=== PATIENT | female | born 1945 | race Caucasian/White ===

== ENCOUNTER 2021-01-02 15:03 | Inpatient (IN) ==
[2021-01-02] MEDS ORDERED: FUROSEMIDE 40 MG/4 ML VIAL IV STA (15:25)
[2021-01-02 15:50] LABS: ABG Base Excess 6.2 MMOL/L (-2.5-2.5); ABG Oxygen Saturation 98.1 % (95-100); ABG PCO2 44.3 MM HG (35-48); ABG PH 7.454 (7.35-7.45); ABG TCO2 26.2 MMOL/L (23-27)
[2021-01-02 16:59] LABS: Basophils # 0.1 10*3/uL (0.0-0.2); Basophils % 0.6 % (0.0-0.8); Eosinophils # 0.5 10*3/uL (0.0-0.87); Eosinophils % 5.3 % (0.00-10.9); Hematocrit 46.4 VOL% (35.7-47.0); Hemoglobin 15.4 GM/DL (12.0-16.0); Immature Granulocytes % 0.5 %; Immature Granulocytes Absolute 0.05 #; Lymphocytes % 20.8 % (21.3-54.2); Mean Corpuscular HGB Conc 33.2 GM/DL (32-36); Mean Corpuscular Volume 95.3 FL (87-102); Mean Platelet Volume 9.4 FL (9.6-12.0); Monocytes % 13.3 % (1.7-12.7); Neutrophils % 59.5 % (38.7-73.9); Platelet Count 191 T/CUMM (130-400); Red Blood Count 4.87 MC/CUMM (3.8-5.5); Red Cell Distribution Width 15.5 % (9.3-17.3); White Blood Count 9.6 T/CUMM (4-12)
[2021-01-02 17:12] LABS: Albumin 2.2 G/DL (3.4-5.0); Bilirubin,Total 2.1 MG/DL (0.20-1.00); Calcium 8.8 MG/DL (8.5-10.1); Osmolality,Calculated 274.4 MOS/KG (273-304); Total Protein 7.4 G/DL (6.4-8.2)
[2021-01-02 17:20] LABS: INR 1.2; PT Patient Result 13.3 SECS (10.5-12.0); Partial Thromboplastin Time 27.7 SECS (23.9-33.8)
[2021-01-02 18:28] LABS: Bilirubin,Urine Negative (Negative); Blood, Urine Moderate mg/dL (Negative); Glucose,Urine (UA) Negative (Negative); Ketones,Urine Negative (Negative); Mucus,Urine Occasional /LPF (Occasional); Nitrite,Urine Negative (Negative); Protein,Urine Negative; RBC,Urine 5 /HPF (0-4); Squamous Epithelial Cell,Urine Many /HPF (0-10); Urine Appearance CLOUDY (Clear); Urine Color Yellow (Yellow); Urine Urobilinogen < 2.0 EU/DL (0.2-1.0)
[2021-01-02 18:44] LABS: Barbiturates Screen,Urine Negative (Negative); Benzodiazepines Screen,Urine Negative (Negative); Cannabinoid Screen,Urine Negative (Negative); Opiate Screen,Urine Negative (Negative); Phencyclidine Screen,Urine Negative (Negative)
[2021-01-02] MEDS ORDERED: cefTRIAXone 1,000 MG in SODIUM CHLORIDE 0.9% 100 ML IV STA (19:13)
[2021-01-02] MEDS ORDERED: CALCIUM CARBONATE CHEW 500 MG TABLET PO PRN (20:00)
[2021-01-02] MEDS ORDERED: ALBUTEROL/IPRATROPIUM 3 ML NEB RESP TX PRN (20:00)
[2021-01-02] MEDS ORDERED: GLUCAGON 1 MG VIAL IM PRN (20:00)
[2021-01-02] MEDS ORDERED: ONDANSETRON 4 MG/2 ML VIAL IV PRN (20:00)
[2021-01-02] MEDS ORDERED: ACETAMINOPHEN 325 MG TABLET PO PRN (20:00)
[2021-01-02] MEDS ORDERED: DEXTROSE 50% 25 GM/50 ML VIAL IV PRN (20:00)
[2021-01-02] MEDS: INSULIN REGULAR 100 UNIT/ML SUBCUT SCH (22:36)
[2021-01-02] MEDS: ENOXAPARIN 40 MG/0.4 ML SYRINGE SUBCUT SCH (22:53)
[2021-01-02] MEDS: LACTULOSE 20 GM/30 ML UDCUP PO SCH (22:53)
[2021-01-03 06:15] LABS: Basophils # 0.1 10*3/uL (0.0-0.2); Basophils % 0.7 % (0.0-0.8); Eosinophils # 0.5 10*3/uL (0.0-0.87); Eosinophils % 5.3 % (0.00-10.9); Hematocrit 43.8 VOL% (35.7-47.0); Hemoglobin 14.3 GM/DL (12.0-16.0); Immature Granulocytes % 0.4 %; Immature Granulocytes Absolute 0.04 #; Lymphocytes # 2.6 10*3/uL (1.4-4.0); Lymphocytes % 28.3 % (21.3-54.2); Mean Corpuscular HGB Conc 32.6 GM/DL (32-36); Mean Corpuscular Volume 96.7 FL (87-102); Mean Platelet Volume 9.5 FL (9.6-12.0); Neutrophils % 53.3 % (38.7-73.9); Platelet Count 167 T/CUMM (130-400); Red Blood Count 4.53 MC/CUMM (3.8-5.5); Red Cell Distribution Width 15.3 % (9.3-17.3); White Blood Count 9.1 T/CUMM (4-12)
[2021-01-03 06:32] LABS: Calcium 8.6 MG/DL (8.5-10.1); Osmolality,Calculated 273.2 MOS/KG (273-304); Potassium 3.7 MMOL/L (3.5-5.1)
[2021-01-03] MEDS: LEVOTHYROXINE 25 MCG TABLET PO SCH (06:51)
[2021-01-03] MEDS: FUROSEMIDE 40 MG/4 ML VIAL IV SCH ×2 (08:28→16:14)
[2021-01-03] MEDS: INSULIN REGULAR 100 UNIT/ML SUBCUT SCH ×4 (10:14→20:47)
[2021-01-03] MEDS: SPIRONOLACTONE 50 MG TABLET PO SCH (10:15)
[2021-01-03] MEDS: LACTULOSE 20 GM/30 ML UDCUP PO SCH ×3 (10:15→20:47)
[2021-01-03] MEDS ORDERED: SKIN HEALING OINT (AQUAPHOR) 50 GM TUBE TOP PRN (13:34)
[2021-01-03 15:10] LABS: Glucose,Pleural Fluid 114 MG/DL; LDH,Body Fluid 89 U/L; Total Protein,Body Fluid < 2.0 G/DL
[2021-01-03 15:29] LABS: Lymphocytes,Pleural Fluid 86 %; Monocytes,Pleural Fluid 8 %; Neutrophils,Pleural Fluid 6 %
[2021-01-03 15:47] LABS: RBC,Pleural Fluid 22943 T/CUMM
[2021-01-03] MEDS: ENOXAPARIN 40 MG/0.4 ML SYRINGE SUBCUT SCH (20:47)
[2021-01-04] MEDS: LEVOTHYROXINE 25 MCG TABLET PO SCH (06:28)
[2021-01-04] MEDS: HydrOXYzine PAMOATE 25 MG CAPSULE PO PRN ×2 (06:28→22:00)
[2021-01-04] MEDS: INSULIN REGULAR 100 UNIT/ML SUBCUT SCH ×4 (07:53→22:01)
[2021-01-04] MEDS: LACTULOSE 20 GM/30 ML UDCUP PO SCH ×3 (09:46→22:00)
[2021-01-04] MEDS: SPIRONOLACTONE 50 MG TABLET PO SCH (09:46)
[2021-01-04] MEDS: FUROSEMIDE 40 MG/4 ML VIAL IV SCH ×2 (09:46→15:23)
[2021-01-04] MEDS: ENOXAPARIN 40 MG/0.4 ML SYRINGE SUBCUT SCH (22:00)
[2021-01-05 06:12] LABS: Calcium 8.1 MG/DL (8.5-10.1); Osmolality,Calculated 278.8 MOS/KG (273-304); Potassium 3.4 MMOL/L (3.5-5.1)
[2021-01-05] MEDS: LEVOTHYROXINE 25 MCG TABLET PO SCH (06:22)
[2021-01-05] MEDS: INSULIN REGULAR 100 UNIT/ML SUBCUT SCH ×4 (07:47→20:25)
[2021-01-05] MEDS: SPIRONOLACTONE 50 MG TABLET PO SCH (09:02)
[2021-01-05] MEDS: LACTULOSE 20 GM/30 ML UDCUP PO SCH ×3 (09:02→21:10)
[2021-01-05] MEDS: FUROSEMIDE 40 MG/4 ML VIAL IV SCH ×2 (09:02→15:29)
[2021-01-05] MEDS ORDERED: POTASSIUM CHLORIDE 20 MEQ TABLET PO ONE (09:28)
[2021-01-05] MEDS ORDERED: LORazepam 0.5 MG TABLET PO PRN (09:57)
[2021-01-05] MEDS ORDERED: HYDROCORTISONE 25 MG SUPP RECTAL PRN (14:58)
[2021-01-05] MEDS: NYSTATIN POWDER 15 GM BOTTLE TOP SCH ×2 (16:49→21:10)
[2021-01-05] MEDS: ENOXAPARIN 40 MG/0.4 ML SYRINGE SUBCUT SCH (21:09)
[2021-01-05] MEDS: ZALEPLON 5 MG CAPSULE PO PRN (21:09)
[2021-01-06] MEDS: LEVOTHYROXINE 25 MCG TABLET PO SCH (06:25)
[2021-01-06 06:50] LABS: Osmolality,Calculated 273.1 MOS/KG (273-304); Potassium 3.5 MMOL/L (3.5-5.1)
[2021-01-06 08:53] LABS: Basophils # 0.1 10*3/uL (0.0-0.2); Basophils % 0.7 % (0.0-0.8); Eosinophils # 0.8 10*3/uL (0.0-0.87); Hematocrit 42.8 VOL% (35.7-47.0); Immature Granulocytes % 0.3 %; Immature Granulocytes Absolute 0.03 #; Lymphocytes # 2.4 10*3/uL (1.4-4.0); Lymphocytes % 28.4 % (21.3-54.2); Mean Corpuscular HGB Conc 32.7 GM/DL (32-36); Mean Corpuscular Volume 94.5 FL (87-102); Mean Platelet Volume 9.6 FL (9.6-12.0); Monocytes % 13.5 % (1.7-12.7); Neutrophils % 48.1 % (38.7-73.9); Platelet Count 143 T/CUMM (130-400); Red Blood Count 4.53 MC/CUMM (3.8-5.5); Red Cell Distribution Width 15.6 % (9.3-17.3); White Blood Count 8.6 T/CUMM (4-12)
[2021-01-06] MEDS: NYSTATIN POWDER 15 GM BOTTLE TOP SCH ×2 (09:00→21:19)
[2021-01-06] MEDS: LACTULOSE 20 GM/30 ML UDCUP PO SCH ×3 (09:59→21:19)
[2021-01-06] MEDS: FUROSEMIDE 40 MG/4 ML VIAL IV SCH ×2 (09:59→15:37)
[2021-01-06] MEDS: SPIRONOLACTONE 50 MG TABLET PO SCH (10:00)
[2021-01-06] MEDS: INSULIN REGULAR 100 UNIT/ML SUBCUT SCH ×4 (12:01→21:19)
[2021-01-06] MEDS: ENOXAPARIN 40 MG/0.4 ML SYRINGE SUBCUT SCH (21:19)
[2021-01-06] MEDS: HydrOXYzine PAMOATE 25 MG CAPSULE PO PRN (21:24)
[2021-01-06] MEDS: ZALEPLON 5 MG CAPSULE PO PRN (21:24)
[2021-01-07] MEDS: LEVOTHYROXINE 25 MCG TABLET PO SCH (06:04)
[2021-01-07 06:28] LABS: Basophils # 0.1 10*3/uL (0.0-0.2); Basophils % 0.5 % (0.0-0.8); Eosinophils # 0.7 10*3/uL (0.0-0.87); Hematocrit 43.6 VOL% (35.7-47.0); Hemoglobin 14.7 GM/DL (12.0-16.0); Immature Granulocytes % 0.4 %; Immature Granulocytes Absolute 0.04 #; Lymphocytes # 2.4 10*3/uL (1.4-4.0); Lymphocytes % 26.3 % (21.3-54.2); Mean Corpuscular HGB Conc 33.7 GM/DL (32-36); Mean Corpuscular Volume 94.4 FL (87-102); Mean Platelet Volume 9.8 FL (9.6-12.0); Monocytes % 13.3 % (1.7-12.7); Neutrophils % 51.5 % (38.7-73.9); Platelet Count 144 T/CUMM (130-400); Red Blood Count 4.62 MC/CUMM (3.8-5.5); Red Cell Distribution Width 15.5 % (9.3-17.3); White Blood Count 9.1 T/CUMM (4-12)
[2021-01-07 06:47] LABS: Calcium 8.3 MG/DL (8.5-10.1); Osmolality,Calculated 270.4 MOS/KG (273-304); Potassium 3.8 MMOL/L (3.5-5.1)
[2021-01-07] MEDS: NYSTATIN POWDER 15 GM BOTTLE TOP SCH ×2 (09:00→21:19)
[2021-01-07] MEDS: LACTULOSE 20 GM/30 ML UDCUP PO SCH ×3 (09:37→21:18)
[2021-01-07] MEDS: SPIRONOLACTONE 50 MG TABLET PO SCH (09:37)
[2021-01-07] MEDS: FUROSEMIDE 40 MG/4 ML VIAL IV SCH ×2 (09:39→15:25)
[2021-01-07] MEDS: INSULIN REGULAR 100 UNIT/ML SUBCUT SCH ×4 (09:59→21:19)
[2021-01-07] MEDS: ENOXAPARIN 40 MG/0.4 ML SYRINGE SUBCUT SCH (21:19)
[2021-01-07] MEDS: ZALEPLON 5 MG CAPSULE PO PRN (21:22)
[2021-01-07] MEDS: HydrOXYzine PAMOATE 25 MG CAPSULE PO PRN (21:22)
[2021-01-08 06:17] LABS: Basophils # 0.1 10*3/uL (0.0-0.2); Basophils % 0.5 % (0.0-0.8); Eosinophils % 9.1 % (0.00-10.9); Hematocrit 43.3 VOL% (35.7-47.0); Hemoglobin 14.3 GM/DL (12.0-16.0); Immature Granulocytes % 0.6 %; Immature Granulocytes Absolute 0.07 #; Lymphocytes # 3.1 10*3/uL (1.4-4.0); Lymphocytes % 28.2 % (21.3-54.2); Mean Corpuscular Volume 96.4 FL (87-102); Mean Platelet Volume 9.6 FL (9.6-12.0); Monocytes % 13.8 % (1.7-12.7); Neutrophils % 47.8 % (38.7-73.9); Platelet Count 151 T/CUMM (130-400); Red Blood Count 4.49 MC/CUMM (3.8-5.5); Red Cell Distribution Width 15.6 % (9.3-17.3); White Blood Count 10.9 T/CUMM (4-12)
[2021-01-08] MEDS: LEVOTHYROXINE 25 MCG TABLET PO SCH (06:46)
[2021-01-08 06:49] LABS: Calcium 8.5 MG/DL (8.5-10.1); Osmolality,Calculated 267.7 MOS/KG (273-304); Potassium 4.5 MMOL/L (3.5-5.1)
[2021-01-08] MEDS ORDERED: LORazepam 1 MG TABLET PO ONE (08:00)
[2021-01-08] MEDS: FUROSEMIDE 40 MG/4 ML VIAL IV SCH (08:31)
[2021-01-08] MEDS: INSULIN REGULAR 100 UNIT/ML SUBCUT SCH ×2 (08:31→11:57)
[2021-01-08] MEDS: SPIRONOLACTONE 50 MG TABLET PO SCH (08:46)
[2021-01-08] MEDS: LACTULOSE 20 GM/30 ML UDCUP PO SCH (08:46)
[2021-01-08] MEDS: NYSTATIN POWDER 15 GM BOTTLE TOP SCH (08:48)
[2021-01-08 12:11] VITALS: BP 127/68
== END 2021-01-08 13:57 | DRG 433 ==
LOC: EDUNIT# → EDBD → N.ED 15:03 → SUATTDRO 20:00 → N.EDINP 20:00 → N.3E 21:53
PROVIDERS: ADMIT Internal Medicine Geriatric Medicine; ATTEND Internal Medicine
PROC: IRTHORA (2021-01-03 12:45)

== ENCOUNTER 2021-01-14 09:27 | Inpatient (IN) ==
[2021-01-14 10:11] LABS: Basophils # 0.1 10*3/uL (0.0-0.2); Basophils % 0.6 % (0.0-0.8); Eosinophils # 0.5 10*3/uL (0.0-0.87); Eosinophils % 6.4 % (0.00-10.9); Hematocrit 42.8 VOL% (35.7-47.0); Immature Granulocytes % 0.3 %; Immature Granulocytes Absolute 0.02 #; Lymphocytes # 2.3 10*3/uL (1.4-4.0); Lymphocytes % 28.4 % (21.3-54.2); Mean Corpuscular HGB Conc 32.7 GM/DL (32-36); Mean Corpuscular Volume 95.5 FL (87-102); Mean Platelet Volume 9.2 FL (9.6-12.0); Monocytes % 10.8 % (1.7-12.7); Neutrophils % 53.5 % (38.7-73.9); Platelet Count 182 T/CUMM (130-400); Red Blood Count 4.48 MC/CUMM (3.8-5.5); Red Cell Distribution Width 16.3 % (9.3-17.3); White Blood Count 7.9 T/CUMM (4-12)
[2021-01-14 10:47] LABS: Albumin 2.5 G/DL (3.4-5.0); Osmolality,Calculated 276.2 MOS/KG (273-304); Potassium 4.8 MMOL/L (3.5-5.1); Total Protein 7.3 G/DL (6.4-8.2)
[2021-01-14 11:05] LABS: Bilirubin,Urine Negative (Negative); Blood, Urine Small mg/dL (Negative); Glucose,Urine (UA) Negative (Negative); Ketones,Urine Negative (Negative); Mucus,Urine Occasional /LPF (Occasional); Nitrite,Urine Negative (Negative); Protein,Urine Negative; RBC,Urine 1 /HPF (0-4); Squamous Epithelial Cell,Urine Occasional /HPF (0-10); Urine Appearance CLEAR (Clear); Urine Color Yellow (Yellow); Urine Specific Gravity 1.012 (1.001-1.035); Urine Urobilinogen < 2.0 EU/DL (0.2-1.0)
[2021-01-14] MEDS ORDERED: hydrALAZINE 20 MG/1 ML VIAL IV PRN (12:28)
[2021-01-14] MEDS ORDERED: DEXTROSE 50% 25 GM/50 ML VIAL IV PRN (12:28)
[2021-01-14] MEDS ORDERED: MORPHINE 2 MG/1 ML SYRINGE IV PRN (12:28)
[2021-01-14] MEDS ORDERED: GLUCAGON 1 MG VIAL IM PRN (12:28)
[2021-01-14] MEDS ORDERED: ONDANSETRON 4 MG/2 ML VIAL IV PRN (12:28)
[2021-01-14] MEDS ORDERED: DOCUSATE SODIUM 100 MG CAPSULE PO PRN (12:28)
[2021-01-14] MEDS: NYSTATIN POWDER 15 GM BOTTLE TOP SCH ×3 (13:42→21:37)
[2021-01-14 16:09] LABS: INR 1.2; PT Patient Result 13.1 SECS (10.5-12.0)
[2021-01-14] MEDS: INSULIN LISPRO 100 UNIT/ML SUBCUT SCH ×2 (17:04→21:16)
[2021-01-15 05:01] LABS: Basophils # 0.1 10*3/uL (0.0-0.2); Basophils % 0.7 % (0.0-0.8); Eosinophils # 0.7 10*3/uL (0.0-0.87); Eosinophils % 7.8 % (0.00-10.9); Hematocrit 41.4 VOL% (35.7-47.0); Hemoglobin 13.9 GM/DL (12.0-16.0); Immature Granulocytes % 0.3 %; Immature Granulocytes Absolute 0.03 #; Lymphocytes # 2.8 10*3/uL (1.4-4.0); Lymphocytes % 31.3 % (21.3-54.2); Mean Corpuscular HGB Conc 33.6 GM/DL (32-36); Mean Corpuscular Volume 95.4 FL (87-102); Mean Platelet Volume 9.3 FL (9.6-12.0); Neutrophils % 46.9 % (38.7-73.9); Platelet Count 185 T/CUMM (130-400); Red Blood Count 4.34 MC/CUMM (3.8-5.5); Red Cell Distribution Width 16.2 % (9.3-17.3)
[2021-01-15 05:20] LABS: Calcium 8.9 MG/DL (8.5-10.1); Osmolality,Calculated 274.2 MOS/KG (273-304)
[2021-01-15 05:27] LABS: INR 1.2; PT Patient Result 12.7 SECS (10.5-12.0)
[2021-01-15] MEDS ORDERED: IBUPROFEN 400 MG TABLET PO PRN (10:20)
[2021-01-15 11:04] LABS: Lymphocytes,Pleural Fluid 79 %; Monocytes,Pleural Fluid 7 %; Neutrophils,Pleural Fluid 14 %
[2021-01-15 11:10] LABS: RBC,Pleural Fluid 29313 T/CUMM
[2021-01-15] MEDS: PANTOPRAZOLE 40 MG TABLET PO SCH (12:37)
[2021-01-15] MEDS: LACTULOSE 20 GM/30 ML UDCUP PO SCH ×3 (12:37→20:20)
[2021-01-15] MEDS: INSULIN LISPRO 100 UNIT/ML SUBCUT SCH ×4 (12:37→20:19)
[2021-01-15] MEDS: amLODIPine 10 MG TABLET PO SCH (12:37)
[2021-01-15] MEDS: NYSTATIN POWDER 15 GM BOTTLE TOP SCH ×4 (12:38→20:20)
[2021-01-15 13:12] LABS: Amylase,Body Fluid 42 U/L; Glucose,Pleural Fluid 96 MG/DL; LDH,Body Fluid 96 U/L; Total Protein,Body Fluid < 2.0 G/DL; Triglycerides,Body Fluid 42 MG/DL
[2021-01-15] MEDS: HydrOXYzine PAMOATE 25 MG CAPSULE PO SCH (20:20)
[2021-01-16 05:18] LABS: Basophils # 0.1 10*3/uL (0.0-0.2); Basophils % 0.6 % (0.0-0.8); Eosinophils # 0.6 10*3/uL (0.0-0.87); Eosinophils % 6.4 % (0.00-10.9); Hematocrit 43.3 VOL% (35.7-47.0); Hemoglobin 14.5 GM/DL (12.0-16.0); Immature Granulocytes % 0.3 %; Immature Granulocytes Absolute 0.03 #; Lymphocytes # 2.7 10*3/uL (1.4-4.0); Lymphocytes % 29.7 % (21.3-54.2); Mean Corpuscular HGB Conc 33.5 GM/DL (32-36); Mean Corpuscular Volume 95.4 FL (87-102); Mean Platelet Volume 9.2 FL (9.6-12.0); Monocytes % 12.5 % (1.7-12.7); Neutrophils % 50.5 % (38.7-73.9); Platelet Count 160 T/CUMM (130-400); Red Blood Count 4.54 MC/CUMM (3.8-5.5); Red Cell Distribution Width 16.2 % (9.3-17.3); White Blood Count 9.1 T/CUMM (4-12)
[2021-01-16 05:49] LABS: Albumin 2.2 G/DL (3.4-5.0); Bilirubin,Total 2.4 MG/DL (0.20-1.00); Calcium 8.9 MG/DL (8.5-10.1); Osmolality,Calculated 277.1 MOS/KG (273-304); Potassium 4.6 MMOL/L (3.5-5.1); Total Protein 7.2 G/DL (6.4-8.2)
[2021-01-16] MEDS: LEVOTHYROXINE 25 MCG TABLET PO SCH (06:20)
[2021-01-16] MEDS: NYSTATIN POWDER 15 GM BOTTLE TOP SCH ×4 (08:41→20:28)
[2021-01-16] MEDS: INSULIN LISPRO 100 UNIT/ML SUBCUT SCH ×4 (08:41→20:27)
[2021-01-16] MEDS: amLODIPine 10 MG TABLET PO SCH (08:42)
[2021-01-16] MEDS: PANTOPRAZOLE 40 MG TABLET PO SCH (08:42)
[2021-01-16] MEDS: LACTULOSE 20 GM/30 ML UDCUP PO SCH ×3 (08:42→20:28)
[2021-01-16] MEDS: HEPARIN 5,000 UNIT/1 ML VIAL SUBCUT SCH (15:27)
[2021-01-16] MEDS: HydrOXYzine PAMOATE 25 MG CAPSULE PO SCH (20:28)
[2021-01-17] MEDS: SKIN HEALING OINT (AQUAPHOR) 50 GM TUBE TOP PRN ×2 (01:44→11:18)
[2021-01-17] MEDS: HEPARIN 5,000 UNIT/1 ML VIAL SUBCUT SCH ×2 (02:17→15:11)
[2021-01-17 05:13] LABS: Basophils # 0.1 10*3/uL (0.0-0.2); Basophils % 0.6 % (0.0-0.8); Eosinophils # 0.9 10*3/uL (0.0-0.87); Eosinophils % 9.4 % (0.00-10.9); Hematocrit 43.3 VOL% (35.7-47.0); Hemoglobin 14.3 GM/DL (12.0-16.0); Immature Granulocytes % 0.3 %; Immature Granulocytes Absolute 0.03 #; Lymphocytes # 2.9 10*3/uL (1.4-4.0); Lymphocytes % 29.7 % (21.3-54.2); Mean Corpuscular Volume 95.6 FL (87-102); Mean Platelet Volume 9.3 FL (9.6-12.0); Monocytes % 13.1 % (1.7-12.7); Neutrophils % 46.9 % (38.7-73.9); Platelet Count 170 T/CUMM (130-400); Red Blood Count 4.53 MC/CUMM (3.8-5.5); Red Cell Distribution Width 15.9 % (9.3-17.3); White Blood Count 9.8 T/CUMM (4-12)
[2021-01-17 05:33] LABS: Albumin 2.1 G/DL (3.4-5.0); Calcium 8.7 MG/DL (8.5-10.1); Osmolality,Calculated 274.4 MOS/KG (273-304); Potassium 4.5 MMOL/L (3.5-5.1); Total Protein 7.3 G/DL (6.4-8.2)
[2021-01-17 05:46] LABS: Anisocytosis 1+; Platelet Estimate Normal
[2021-01-17 05:47] LABS: Macrocytosis Slight
[2021-01-17] MEDS: LEVOTHYROXINE 25 MCG TABLET PO SCH (06:28)
[2021-01-17] MEDS: INSULIN LISPRO 100 UNIT/ML SUBCUT SCH ×4 (09:14→21:35)
[2021-01-17 09:42] LABS: ABG Base Excess 5.5 MMOL/L (-2.5-2.5); ABG HCO3 28.3 MMOL/L (20-26); ABG PCO2 35.5 MM HG (35-48); ABG PH 7.519 (7.35-7.45); ABG PO2 73.5 MM HG (80-95); ABG TCO2 29.4 MMOL/L (23-27); Allen Test Positive
[2021-01-17] MEDS: NYSTATIN POWDER 15 GM BOTTLE TOP SCH ×4 (11:18→21:35)
[2021-01-17] MEDS: LACTULOSE 20 GM/30 ML UDCUP PO SCH ×3 (11:24→21:35)
[2021-01-17] MEDS: amLODIPine 10 MG TABLET PO SCH (11:58)
[2021-01-17] MEDS: PANTOPRAZOLE 40 MG TABLET PO SCH (11:59)
[2021-01-17] MEDS: RIFAXIMIN 550 MG TABLET PO SCH ×2 (16:14→21:35)
[2021-01-17] MEDS: METOPROLOL TARTRATE 25 MG TABLET PO SCH ×2 (16:14→21:35)
[2021-01-18] MEDS: HEPARIN 5,000 UNIT/1 ML VIAL SUBCUT SCH ×2 (02:17→13:56)
[2021-01-18 04:54] LABS: Basophils % 0.5 % (0.0-0.8); Eosinophils # 0.7 10*3/uL (0.0-0.87); Eosinophils % 8.3 % (0.00-10.9); Hematocrit 46.3 VOL% (35.7-47.0); Hemoglobin 15.2 GM/DL (12.0-16.0); Immature Granulocytes % 0.3 %; Immature Granulocytes Absolute 0.03 #; Lymphocytes # 2.4 10*3/uL (1.4-4.0); Lymphocytes % 26.7 % (21.3-54.2); Mean Corpuscular HGB Conc 32.8 GM/DL (32-36); Mean Corpuscular Volume 96.3 FL (87-102); Monocytes % 10.7 % (1.7-12.7); Neutrophils % 53.5 % (38.7-73.9); Platelet Count 159 T/CUMM (130-400); Red Blood Count 4.81 MC/CUMM (3.8-5.5); Red Cell Distribution Width 15.9 % (9.3-17.3); White Blood Count 8.8 T/CUMM (4-12)
[2021-01-18 05:25] LABS: Albumin 2.1 G/DL (3.4-5.0); Bilirubin,Total 1.8 MG/DL (0.20-1.00); Calcium 8.8 MG/DL (8.5-10.1); Potassium 4.4 MMOL/L (3.5-5.1); Total Protein 7.3 G/DL (6.4-8.2)
[2021-01-18] MEDS: LEVOTHYROXINE 25 MCG TABLET PO SCH (06:10)
[2021-01-18] MEDS: INSULIN LISPRO 100 UNIT/ML SUBCUT SCH ×4 (07:53→20:42)
[2021-01-18] MEDS ORDERED: PANTOPRAZOLE 40 MG VIAL IV ONE (08:41)
[2021-01-18] MEDS: NYSTATIN POWDER 15 GM BOTTLE TOP SCH ×4 (08:41→21:10)
[2021-01-18] MEDS: PANTOPRAZOLE 40 MG TABLET PO SCH (08:41)
[2021-01-18] MEDS: RIFAXIMIN 550 MG TABLET PO SCH ×2 (08:41→21:10)
[2021-01-18] MEDS: amLODIPine 10 MG TABLET PO SCH (08:41)
[2021-01-18] MEDS: METOPROLOL TARTRATE 25 MG TABLET PO SCH ×2 (08:41→21:10)
[2021-01-18] MEDS: LACTULOSE 20 GM/30 ML UDCUP PO SCH ×3 (08:41→21:10)
[2021-01-18] MEDS ORDERED: LEVOFLOXACIN INJ 500 MG/100 ML PREMIX IV ONE (13:45)
[2021-01-18] MEDS: SKIN HEALING OINT (AQUAPHOR) 50 GM TUBE TOP PRN ×2 (14:01→21:10)
[2021-01-18 17:45] LABS: Bilirubin,Urine Negative (Negative); Blood, Urine Negative (Negative); Glucose,Urine (UA) Negative (Negative); Hyaline Casts,Urine 14 /LPF (0-3); Ketones,Urine Negative (Negative); Mucus,Urine Occasional /LPF (Occasional); Nitrite,Urine Negative (Negative); Protein,Urine Negative; RBC,Urine 3 /HPF (0-4); Squamous Epithelial Cell,Urine Occasional /HPF (0-10); Urine Appearance CLEAR (Clear); Urine Color Yellow (Yellow); Urine Specific Gravity 1.016 (1.001-1.035)
[2021-01-19] MEDS: HEPARIN 5,000 UNIT/1 ML VIAL SUBCUT SCH ×2 (02:15→14:23)
[2021-01-19 06:10] LABS: Basophils % 0.5 % (0.0-0.8); Eosinophils # 0.8 10*3/uL (0.0-0.87); Eosinophils % 10.3 % (0.00-10.9); Hemoglobin 14.4 GM/DL (12.0-16.0); Immature Granulocytes % 0.2 %; Immature Granulocytes Absolute 0.02 #; Lymphocytes % 24.8 % (21.3-54.2); Mean Corpuscular Volume 96.8 FL (87-102); Mean Platelet Volume 9.5 FL (9.6-12.0); Monocytes % 12.7 % (1.7-12.7); Neutrophils % 51.5 % (38.7-73.9); Platelet Count 157 T/CUMM (130-400); Red Blood Count 4.65 MC/CUMM (3.8-5.5); Red Cell Distribution Width 15.9 % (9.3-17.3); White Blood Count 8.1 T/CUMM (4-12)
[2021-01-19] MEDS: LEVOTHYROXINE 25 MCG TABLET PO SCH (06:26)
[2021-01-19 06:35] LABS: Albumin 1.9 G/DL (3.4-5.0); Bilirubin,Total 1.7 MG/DL (0.20-1.00); Calcium 8.6 MG/DL (8.5-10.1); Potassium 4.6 MMOL/L (3.5-5.1); Total Protein 6.8 G/DL (6.4-8.2)
[2021-01-19] MEDS: INSULIN LISPRO 100 UNIT/ML SUBCUT SCH ×4 (07:51→21:07)
[2021-01-19] MEDS ORDERED: DEXT 5% NACL 0.45% KCL 20 MEQ 20 MEQ/1,000 ML BAG IV SCH (09:00)
[2021-01-19] MEDS: amLODIPine 10 MG TABLET PO SCH (10:56)
[2021-01-19] MEDS: METOPROLOL TARTRATE 25 MG TABLET PO SCH ×2 (10:56→21:08)
[2021-01-19] MEDS: RIFAXIMIN 550 MG TABLET PO SCH ×2 (10:56→21:08)
[2021-01-19] MEDS: LACTULOSE 20 GM/30 ML UDCUP PO SCH ×2 (10:56→21:07)
[2021-01-19] MEDS: metroNIDAZOLE INJ 500 MG/100 ML PREMIX IV SCH ×2 (10:56→17:24)
[2021-01-19] MEDS: PANTOPRAZOLE 40 MG TABLET PO SCH (10:56)
[2021-01-19] MEDS: NYSTATIN POWDER 15 GM BOTTLE TOP SCH ×4 (10:57→21:08)
[2021-01-19] MEDS: ALBUTEROL/IPRATROPIUM 3 ML NEB RESP TX SCH ×2 (13:44→20:09)
[2021-01-19] MEDS: LEVOFLOXACIN INJ 250 MG/50 ML PREMIX IV SCH (14:23)
[2021-01-20] MEDS: metroNIDAZOLE INJ 500 MG/100 ML PREMIX IV SCH ×4 (00:46→16:06)
[2021-01-20] MEDS: ALBUTEROL/IPRATROPIUM 3 ML NEB RESP TX SCH ×4 (02:43→20:00)
[2021-01-20] MEDS: HEPARIN 5,000 UNIT/1 ML VIAL SUBCUT SCH ×2 (02:48→13:33)
[2021-01-20 04:15] LABS: Basophils % 0.5 % (0.0-0.8); Eosinophils # 0.7 10*3/uL (0.0-0.87); Eosinophils % 8.9 % (0.00-10.9); Hematocrit 44.4 VOL% (35.7-47.0); Hemoglobin 14.4 GM/DL (12.0-16.0); Immature Granulocytes % 0.3 %; Immature Granulocytes Absolute 0.02 #; Lymphocytes # 2.6 10*3/uL (1.4-4.0); Lymphocytes % 33.5 % (21.3-54.2); Mean Corpuscular HGB Conc 32.4 GM/DL (32-36); Mean Corpuscular Volume 97.4 FL (87-102); Mean Platelet Volume 9.5 FL (9.6-12.0); Monocytes % 13.1 % (1.7-12.7); Neutrophils % 43.7 % (38.7-73.9); Red Blood Count 4.56 MC/CUMM (3.8-5.5); Red Cell Distribution Width 15.9 % (9.3-17.3); White Blood Count 7.9 T/CUMM (4-12)
[2021-01-20 04:27] LABS: Platelet Count 124 T/CUMM (130-400)
[2021-01-20 04:41] LABS: Albumin 1.9 G/DL (3.4-5.0); Bilirubin,Total 1.5 MG/DL (0.20-1.00); Calcium 8.7 MG/DL (8.5-10.1); Osmolality,Calculated 275.1 MOS/KG (273-304); Potassium 4.6 MMOL/L (3.5-5.1); Total Protein 6.8 G/DL (6.4-8.2)
[2021-01-20] MEDS: LEVOTHYROXINE 25 MCG TABLET PO SCH (06:21)
[2021-01-20] MEDS: METOPROLOL TARTRATE 25 MG TABLET PO SCH ×2 (08:49→20:33)
[2021-01-20] MEDS: amLODIPine 10 MG TABLET PO SCH (08:49)
[2021-01-20] MEDS: PANTOPRAZOLE 40 MG TABLET PO SCH (08:49)
[2021-01-20] MEDS: RIFAXIMIN 550 MG TABLET PO SCH ×2 (08:50→20:34)
[2021-01-20] MEDS: LACTULOSE 20 GM/30 ML UDCUP PO SCH ×2 (08:50→20:34)
[2021-01-20] MEDS: NYSTATIN POWDER 15 GM BOTTLE TOP SCH ×4 (08:51→20:34)
[2021-01-20] MEDS: INSULIN LISPRO 100 UNIT/ML SUBCUT SCH ×4 (10:52→20:43)
[2021-01-20] MEDS: LEVOFLOXACIN INJ 250 MG/50 ML PREMIX IV SCH (17:19)
[2021-01-21] MEDS: ALBUTEROL/IPRATROPIUM 3 ML NEB RESP TX SCH ×4 (00:09→19:30)
[2021-01-21] MEDS: HEPARIN 5,000 UNIT/1 ML VIAL SUBCUT SCH ×2 (01:30→17:10)
[2021-01-21] MEDS: metroNIDAZOLE INJ 500 MG/100 ML PREMIX IV SCH ×3 (01:30→18:13)
[2021-01-21] MEDS: SODIUM CHLORIDE 0.9% 1,000 ML IV SCH (08:03)
[2021-01-21] MEDS ORDERED: LIDOCAINE 2% 5 ML VIAL ONE (08:14)
[2021-01-21] MEDS ORDERED: propofoL 200 MG/20 ML VIAL IV ONE (08:14)
[2021-01-21] MEDS ORDERED: PHENYLEPHRINE 1 MG/10 ML SYRINGE IV ONE (08:25)
[2021-01-21] MEDS: NYSTATIN POWDER 15 GM BOTTLE TOP SCH ×4 (10:05→20:28)
[2021-01-21] MEDS: INSULIN LISPRO 100 UNIT/ML SUBCUT SCH ×4 (10:16→20:02)
[2021-01-21] MEDS: METOPROLOL TARTRATE 25 MG TABLET PO SCH ×2 (11:11→20:28)
[2021-01-21] MEDS: amLODIPine 10 MG TABLET PO SCH (11:14)
[2021-01-21] MEDS: PANTOPRAZOLE 40 MG TABLET PO SCH (11:16)
[2021-01-21] MEDS: RIFAXIMIN 550 MG TABLET PO SCH ×2 (11:16→20:28)
[2021-01-21] MEDS: LACTULOSE 20 GM/30 ML UDCUP PO SCH ×2 (11:18→20:28)
[2021-01-21] MEDS: LEVOTHYROXINE 25 MCG TABLET PO SCH (11:51)
[2021-01-21] MEDS: LEVOFLOXACIN INJ 250 MG/50 ML PREMIX IV SCH (17:10)
[2021-01-22] MEDS: ALBUTEROL/IPRATROPIUM 3 ML NEB RESP TX SCH ×4 (00:32→18:47)
[2021-01-22] MEDS: HEPARIN 5,000 UNIT/1 ML VIAL SUBCUT SCH ×2 (01:35→13:42)
[2021-01-22] MEDS: metroNIDAZOLE INJ 500 MG/100 ML PREMIX IV SCH ×3 (01:35→16:46)
[2021-01-22] MEDS: LEVOTHYROXINE 25 MCG TABLET PO SCH (06:03)
[2021-01-22 06:05] LABS: Basophils # 0.1 10*3/uL (0.0-0.2); Basophils % 0.7 % (0.0-0.8); Eosinophils # 0.8 10*3/uL (0.0-0.87); Eosinophils % 8.3 % (0.00-10.9); Hematocrit 44.1 VOL% (35.7-47.0); Hemoglobin 14.5 GM/DL (12.0-16.0); Immature Granulocytes % 0.6 %; Immature Granulocytes Absolute 0.05 #; Lymphocytes # 2.4 10*3/uL (1.4-4.0); Lymphocytes % 26.9 % (21.3-54.2); Mean Corpuscular HGB Conc 32.9 GM/DL (32-36); Mean Corpuscular Volume 97.6 FL (87-102); Monocytes % 13.4 % (1.7-12.7); Neutrophils % 50.1 % (38.7-73.9); Platelet Count 163 T/CUMM (130-400); Red Blood Count 4.52 MC/CUMM (3.8-5.5); Red Cell Distribution Width 16.1 % (9.3-17.3); White Blood Count 9.1 T/CUMM (4-12)
[2021-01-22 06:25] LABS: Bilirubin,Total 1.5 MG/DL (0.20-1.00); Calcium 8.6 MG/DL (8.5-10.1); Osmolality,Calculated 276.1 MOS/KG (273-304); Potassium 4.3 MMOL/L (3.5-5.1); Total Protein 7.2 G/DL (6.4-8.2)
[2021-01-22 06:29] LABS: Hypochromasia 1+; Microcytosis 1+; Platelet Estimate Adequate
[2021-01-22] MEDS: METOPROLOL TARTRATE 25 MG TABLET PO SCH ×2 (09:07→20:39)
[2021-01-22] MEDS: RIFAXIMIN 550 MG TABLET PO SCH ×2 (09:07→20:39)
[2021-01-22] MEDS: PANTOPRAZOLE 40 MG TABLET PO SCH (09:07)
[2021-01-22] MEDS: amLODIPine 10 MG TABLET PO SCH (09:08)
[2021-01-22] MEDS: LACTULOSE 20 GM/30 ML UDCUP PO SCH ×3 (09:08→20:39)
[2021-01-22] MEDS: NYSTATIN POWDER 15 GM BOTTLE TOP SCH ×4 (09:09→20:39)
[2021-01-22] MEDS: SODIUM CHLORIDE 0.9% 1,000 ML IV SCH (09:20)
[2021-01-22] MEDS: INSULIN LISPRO 100 UNIT/ML SUBCUT SCH ×4 (09:20→20:39)
[2021-01-22] MEDS: LEVOFLOXACIN INJ 250 MG/50 ML PREMIX IV SCH (13:42)
[2021-01-22] MEDS ORDERED: BISACODYL 5 MG TABLET PO ONE (15:24)
[2021-01-22] MEDS ORDERED: ALPRAZolam 0.5 MG TABLET PO PRN (18:41)
[2021-01-23] MEDS: ALBUTEROL/IPRATROPIUM 3 ML NEB RESP TX SCH ×3 (00:05→13:44)
[2021-01-23] MEDS ORDERED: HYDROmorphone 2 MG/1 ML VIAL IV PRN (01:16)
[2021-01-23] MEDS: metroNIDAZOLE INJ 500 MG/100 ML PREMIX IV SCH (02:14)
[2021-01-23] MEDS: HEPARIN 5,000 UNIT/1 ML VIAL SUBCUT SCH ×2 (02:15→14:36)
[2021-01-23 04:58] LABS: Basophils # 0.1 10*3/uL (0.0-0.2); Basophils % 0.5 % (0.0-0.8); Eosinophils # 0.6 10*3/uL (0.0-0.87); Hemoglobin 14.6 GM/DL (12.0-16.0); Immature Granulocytes % 0.5 %; Immature Granulocytes Absolute 0.05 #; Lymphocytes # 2.7 10*3/uL (1.4-4.0); Lymphocytes % 25.8 % (21.3-54.2); Mean Corpuscular HGB Conc 31.7 GM/DL (32-36); Mean Corpuscular Volume 97.5 FL (87-102); Mean Platelet Volume 9.9 FL (9.6-12.0); Monocytes % 13.2 % (1.7-12.7); Platelet Count 174 T/CUMM (130-400); Red Blood Count 4.72 MC/CUMM (3.8-5.5); Red Cell Distribution Width 16.1 % (9.3-17.3); White Blood Count 10.4 T/CUMM (4-12)
[2021-01-23 05:31] LABS: Albumin 2.1 G/DL (3.4-5.0); Bilirubin,Total 1.4 MG/DL (0.20-1.00); Calcium 8.7 MG/DL (8.5-10.1); Potassium 4.5 MMOL/L (3.5-5.1); Total Protein 7.4 G/DL (6.4-8.2)
[2021-01-23] MEDS: INSULIN LISPRO 100 UNIT/ML SUBCUT SCH ×3 (07:22→17:04)
[2021-01-23] MEDS: SODIUM CHLORIDE 0.9% 1,000 ML IV SCH (08:28)
[2021-01-23] MEDS: LEVOTHYROXINE 25 MCG TABLET PO SCH (09:09)
[2021-01-23] MEDS: PANTOPRAZOLE 40 MG TABLET PO SCH (09:09)
[2021-01-23] MEDS: METOPROLOL TARTRATE 25 MG TABLET PO SCH (09:10)
[2021-01-23] MEDS: RIFAXIMIN 550 MG TABLET PO SCH (09:11)
[2021-01-23] MEDS: amLODIPine 10 MG TABLET PO SCH (09:11)
[2021-01-23] MEDS: LACTULOSE 20 GM/30 ML UDCUP PO SCH ×2 (09:12→17:04)
[2021-01-23] MEDS: NYSTATIN POWDER 15 GM BOTTLE TOP SCH ×3 (09:16→16:45)
[2021-01-23] MEDS ORDERED: predniSONE 20 MG TABLET PO SCH (12:00)
[2021-01-23] MEDS ORDERED: metroNIDAZOLE 500 MG TABLET PO SCH (14:00)
[2021-01-23 18:07] VITALS: BP 116/76
== END 2021-01-23 17:30 | disposition hospice, home (50) | DRG 441 ==
LOC: EDUNIT# → EDBD → N.ED 09:27 → N.EDINP 12:28 → SUATTDRO 12:28 → N.4E 12:59
PROVIDERS: ADMIT Internal Medicine; ATTEND Internal Medicine
PROC: IRTHORA (2021-01-15 14:35)